=== PATIENT | female | born 1985 | race Caucasian/White ===

== ENCOUNTER → 2022-05-31 11:13 | Outpatient (CLI) | payer OTHER, SELFPAY ==
--- NOTE | ~2022-05-31 | MR_ITS ---
EXAMINATION: MR abdomen wo/w con INDICATION: Liver mass TECHNIQUE: Coronal SSFSE ARC, WATER:coronal LAVA-FLEX, Coronal 2D FIESTA FatSat, Axial SSFSE BH ARC, Axial 3D DualEcho BH, Axial SSFSE-IR, Axial DWI b=500, Axial 2D FIESTA FatSat, pre and dynamic postco ntrast Axial LAVA ARC, postcontrast Coronal In and Opposed phase LAVA FLEX COMPARISON: None CONTRAST: Multihance, 20 cc FINDINGS: There is a 14.8 x 11.3 cm mass of the right hepatic lobe, predominantly involving liver seg ments and VII, with signal characteristics consistent with a giant hemangioma. There is a 1.9 cm c yst in liver segment VII. Additional smaller hemangiomas are noted in liver segment VIII and segment . The spleen, gallbladder, and adrenal glands are normal. There are multiple tiny cystic lesions in the pancreas, and the nipple which definitely communicate with the main pancreatic duct. The largest measures 6 mm in the tail. The kidneys are unremarkable. There are no pathologically enlarged abdomi nal lymph nodes. There are no dilated loops of bowel. IMPRESSION: 1. 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 2. Cystic lesions of the pancreas measuring up to 5 mm in the tail. The differential diagnosis includ es pseudocyst, intraductal papillary mucinous neoplasm (IPMN), mucinous cystic neoplasm (MCN), and th e less common serous cystadenoma and neuroendocrine tumor. Correlate for history of pancreatitis. Fol low-up MRI without and with contrast or pancreas protocol CT in 12 months is recommended. Reviewed, dictated and finalized at location B. IMPRESSION: 1. 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 2. Cystic lesions of the pancreas measuring up to 5 mm in the tail. The differe ntial diagnosis includes pseudocyst, intraductal papillary mucinous neoplasm (I PMN), mucinous cystic neoplasm (MCN), and the less common serous cystadenoma an d neuroendocrine tumor. Correlate for history of pancreatitis. Follow-up MRI wi thout and with contrast or pancreas protocol CT in 12 months is recommended.
== END ==
PROVIDERS: PCP Family Medicine; Visit Provider Nurse Practitioner Family
DX: R16.0 Hepatomegaly, not elsewhere classified (principal); K76.9 Liver disease, unspecified; D18.09 Hemangioma of other sites; K86.9 Disease of pancreas, unspecified
CPT/HCPCS: 74183; A9577

== ENCOUNTER → 2023-04-02 08:02 | Outpatient (CLI) | payer OTHER, SELFPAY ==
--- NOTE | ~2023-04-02 | MR_ITS ---
EXAMINATION: MR abdomen wo/w con DATE: 04/02/2023 09:11 INDICATION: Hepatomegaly TECHNIQUE: Magnetic resonance imaging (MRI) of the abdomen was performed without and with 20 mL Multi melissa intravenous contrast. Sequences included coronal T2-weighted SS-FSE, coronal and axial FS 2D-F IESTA, axial STIR FSE, axial T2-weighted SS-FSE, axial T2-weighted FS SS-FSE, axial diffusion-weighte d SE, axial dual-echo T1-weighted FSPGR, and axial and coronal T1-weighted LAVA. Postcontrast axial T 1-weighted LAVA images were obtained in a time course. Postcontrast coronal T1-weighted LAVA images w ere obtained. COMPARISON: 05/31/2022 FINDINGS: Heart size is normal. No pericardial or pleural effusion. No significant change in a giant cavernous hemangioma in the right hepatic lobe which measures 14.4 x 10.1 x 11.0 cm. Unchanged T2 hyperintense cyst in segment 8 of the liver. Also unchanged are couple additional smaller hemangiomas measuring 1. 0 cm at the caudal tip of the right hepatic lobe 1.3 cm in the anterior dome of the liver demonstrati ng progressive delayed peripheral enhancement. 3.2 cm ovoid low signal intensity gallstone at the nec k of the otherwise normal-appearing gallbladder. No intra or extra hepatic biliary ductal dilation. S pleen, bilateral adrenal glands and kidneys are normal. Again seen are approximately 10 tiny T2 hype rintense lesions scattered throughout the pancreas the largest measuring 7 mm the uncinate process an d the remainder all measuring <5 mm suggesting multiple dilated side branches related to chronic panc reatitis. Visualized bowels are unremarkable. No pathologically enlarged abdominal lymphadenopathy. IMPRESSION: 1. No interval change in 14.4 cm cavernous hemangioma and a couple smaller approximately 1 cm hemangi omas in the right hepatic lobe. 2. No significant interval change in multiple subcentimeter T2 hyperintense cystic lesions scattered throughout the pancreas which suggests dilated pancreatic ductal side branches related to chronic blackmon creatitis. Correlate with clinical history. Recommend continued follow-up pre and postcontrast. 3. Cholelithiasis. Reviewed, dictated and finalized at location A. PULLER IMPRESSION: 1. No interval change in 14.4 cm cavernous hemangioma and a couple smaller appr oximately 1 cm hemangiomas in the right hepatic lobe. 2. No significant interval change in multiple subcentimeter T2 hyperintense cys tic lesions scattered throughout the pancreas which suggests dilated pancreatic ductal side branches related to chronic pancreatitis. Correlate with clinical history. Recommend continued follow-up pre and postcontrast. 3. Cholelithiasis.
== END ==
PROVIDERS: PCP Nurse Practitioner Family; Visit Provider Nurse Practitioner Family
DX: R16.0 Hepatomegaly, not elsewhere classified (principal); K76.9 Liver disease, unspecified; K80.20 Calculus of gallbladder without cholecystitis without obstruction
CPT/HCPCS: 74183; A9577

== ENCOUNTER 2023-05-07 14:36 | Outpatient (CLI) | payer OTHER, SELFPAY ==
[2023-05-07 15:24] LABS: Alanine Aminotransferase 15 U/L (6-35); Albumin Level 3.7 g/dL (3.5-5.1); Alkaline Phosphatase 91 U/L (38-126); Amylase 45 U/L (30-110); Aspartate Amino Transferase 19 U/L (14-36); Bilirubin,Total 0.4 mg/dL (0.2-1.3); Lipase 88 U/L (23-300)
== END 2023-05-07 14:37 | disposition home or self-care (01) ==
LOC: ANHLAB 14:38
PROVIDERS: PCP Nurse Practitioner Family; Visit Provider Surgery
DX: Z01.818 Encounter for other preprocedural examination (principal); K81.1 Chronic cholecystitis
CPT/HCPCS: 36415; 80076; 82150; 83690; 86850; 86900; 86901

== ENCOUNTER 2023-05-12 00:38 | Day surgery (SDC) | payer OTHER, SELFPAY ==
[2023-05-05 11:10] VITALS: BMI 37.5
--- NOTE | 2023-05-05 11:15 | PC.NURSE ---
Report to the Outpatient Waiting Room, entrance under the green pavilion located off [facility], at time 8:00 on date 05/12/23. Planned Procedure Time: 10:00. Time changes happen often and if your time is changed the preop area will call you the afternoon before. - You and your visitor will be asked to self-screen and do not enter if you have any COVID symptoms. - A mask is optional within the hospital at this time. Patients may have clear liquids (water, carbonated beverages, clear teas, apple juice) until 3 hours prior to surgery (7:00) with a maximum of 20 ounces. - No food from midnight until time of surgery Take the following medications with a SIP of water the morning of surgery: HYDROCORTISONE DO NOT STOP ANY OF YOUR OTHER PRESCRIPTION MEDICATIONS PRIOR TO SURGERY ?EXCEPT THE FOLLOWING Medications to discontinue per physician: VITAMINS/SUPPLEMENTS Date to take last dose: 05/08/23 Please no make-up, nail yoruba, hairspray, perfume, deodorant, or body powder the day of surgery. No jewelry (including any body piercings) or valuables the day of surgery, leave them at home. Please take a shower or bath the night before, or the morning of, surgery with an antibacterial soap. Wear comfortable, loose fitting clothing. - Jewelry must be removed prior to entering the operating room. Rings and piercings that are not removed may be cut off. - The hospital will not accept responsibility for valuables. - Please leave all valuables, including medications, at home the day of surgery. If you are going home after surgery, a licensed dedicated local truck driver must drive you home. - NO public transportation without another adult if you receive anesthesia. - We recommend that an adult stay with you for 24 hours following discharge. - We also recommend that you do not drive, make important decision, drink alcoholic beverages, or take any drugs that were not prescribed by your health care provider for at least 24 hours after your discharge time. Follow any additional instructions given to you from your surgeon. If you or anyone in your household have experienced Covid symptoms in the past week, please notify your surgeon or the nurse liaison at the phone number below for possible testing. Telephone instructions given to PT - BILLY EATON and asked if any additional questions and then verbalized understanding. Patient advised to call surgeon office or pre surgery nurse liaison [phone] if any additional questions.
[2023-05-12] VITALS (10 sets, daily range): BP systolic 112–134; BP diastolic 72–98; PULSE 70–92; RESP 14–20; TEMP 36.2–36.7; O2SAT 95–100
--- NOTE | 2023-05-12 07:24 | P.HP_ITS ---
H&P: HPI History of Present Illness Date/Time: 05/12/23 07:24 Chief Complaint: abdominal pain Narrative: Lillian is a 38 y/o female who presents to the office at the request of Ericka LAST for evaluation of nausea and vomiting. Patient states she has been experiencing these symptoms since January 2023. She denies any foods that trigger symptoms. She was seen at [facility] with complaints of chest pain and nausea in February. She is having normal BM's. She has [place]'s disease and was undergoing work up for this recently. Recent CT scan was done that showed gallstones. HIDA scan was also performed on 02/27/23, findings were consistent with chronic cholecystitis. 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 Spiritual care concerns: No Meds Home Medications and Allergies Home Medications Medication Instructions Recorded Confirmed Type hydrocortisone 10 mg tablet 10 mg PO HS 03/17/23 05/05/23 History levonorgestrel 21 mcg/24 hours (8 1 device intrauterine ONCE 03/17/23 05/05/23 H istory yrs) 52 mg intrauterine device (Mirena) multivitamin 1 tablet PO DAILY 03/17/23 05/05/23 History hydrocortisone 20 mg tablet 20 mg PO DAILY 03/19/23 05/05/23 History Ca 600 mg-D3 20 mcg-mag oxide 50 1 tablet PO DAILY 05/05/23 05/05/23 History do-Pm-pkypaw-manganese-boron tablet (Calcium 600-D3 Plus (mag-zinc)) Saccharomyces boulardii 250 mg 250 mg PO DAILY 05/05/23 05/05/23 History capsule (Daily Probiotic (S. boulardii)) omeprazole 40 mg capsule,delayed 40 mg PO DAILY 05/05/23 05/05/23 History release Allergies Allergy/AdvReac Type Severity Reaction Status Date / Time heparin Allergy Mild Rash Verified 05/05/23 11:07 codeine AdvReac Intermediate Unknown Verified 05/05/23 11:07 Exam Const: General: cooperative, comfortable, no acute distress and obese Resp: Auscultation: clear to auscultation bilaterally Cardio: Rate: regular rate Rhythm: regular rhythm GI: Inspection: normal to inspection and non-distended GI Palp: Yes abdominal tenderness, Yes Soft to palpation, Yes Tenderness to palpation present (GI), No Guarding due to palpation present (GI) and No Rigid due to palpation Assessment and Plan Assessment and plan (1) Chronic cholecystitis: Code(s): K81.1 - Chronic cholecystitis Status: Acute Assessment and Plan: setup for robotic assisted cholecystectomy in OR under general anesthesia
--- NOTE | 2023-05-12 07:30 | WPDHPUPDATE1 ---
History and Physical Update Update Date/Time: 05/12/23 07:30 History and Physical has been reviewed, including an updated exam of the patient. There are NO changes in the patient's condition. Risks, benefits, and alternatives have been discussed and questions answered. Patient agrees to proceed with procedure.
[2023-05-12] MEDS: ACETAMINOPHEN 500 MG TABLET 1000 MG PO (08:49)
[2023-05-12] MEDS: KETOROLAC 15 MG/ML VIAL (*BKC) IV PUSH (08:49)
[2023-05-12] MEDS: INDOCYANINE GREEN 25 MG VIAL WITH DILUENT 3.75 MG IV PUSH (08:52)
--- NOTE | 2023-05-12 08:54 | WPDANESEPPF ---
Anes - Initial Pre Proc Eval Procedure: Operation Date: 05/12/23 10:00 Proposed Procedures p Robotic Assisted Laparoscopic Cholecystectomy - Kalpana Manning MD Date/Time: 05/12/23 08:54 Surgeon: Kalpana Manning MD Pre Op Diagnosis: chronic cholecystitis,mireille's disease, hypertens Patient Data Age: 38 Gender: F Height: 1.7 m Weight: 108.9 kg Last Vital Signs Temp 97.1 F L 05/12/23 08:34 Pulse 74 05/12/23 08:34 Resp 16 05/12/23 08:34 BP 112/72 05/12/23 08:34 Pulse Ox 98 05/12/23 08:34 Allergies Allergy/AdvReac Type Severity Reaction Status Date / Time heparin Allergy Mild Rash Verified 05/05/23 11:07 codeine AdvReac Intermediate Unknown Verified 05/05/23 11:07 Home Medications Medication Instructions Recorded Confirmed Type hydrocortisone 10 mg tablet 10 mg PO HS 03/17/23 05/05/23 History levonorgestrel 21 mcg/24 hours (8 1 device intrauterine ONCE 03/17/23 05/05/23 History yrs) 52 mg intrauterine device (Mirena) multivitamin 1 tablet PO DAILY 03/17/23 05/05/23 History hydrocortisone 20 mg tablet 20 mg PO DAILY 03/19/23 05/05/23 History Ca 600 mg-D3 20 mcg-mag oxide 50 1 tablet PO DAILY 05/05/23 05/05/23 History ma-Dx-lalmgj-manganese-boron tablet (Calcium 600-D3 Plus (mag-zinc)) Saccharomyces boulardii 250 mg 250 mg PO DAILY 05/05/23 05/05/23 History capsule (Daily Probiotic (S. boulardii)) omeprazole 40 mg capsule,delayed 40 mg PO DAILY 05/05/23 05/05/23 History release Patient hx anesthesia problems: none Family hx anesthesia problems: none Results Review: All pre-operative results and documents have been reviewed as part of the pre-operative evaluation. 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 Informed Consent: The patient's anesthetic plan and its attendant risks and benefits were discussed with the patient/family/POA. Questions were solicited and answers provided to the satisfaction of the patient/family/POA.
[2023-05-12] MEDS: LACTATED RINGERS 1,000 ML 30 ML IV CONT ×2 (09:00→11:11)
[2023-05-12] MEDS: ceFAZolin 2 GM/D5W 50 ML 2 GM/50 ML BAG IVPB (09:18)
[2023-05-12] MEDS: BUPIVACAINE/EPINEPHRINE 0.5% 50 ML VIAL 30 ML INFILTRATE (09:38)
--- NOTE | 2023-05-12 11:41 | W.PM.PROC2 ---
Procedure Note - Detailed Date of Procedure 05/12/23 Pre-op Diagnosis cholecystitis, cholelithiasis Post-op Diagnosis Other ( acute hydrops cholecystitis, cholelithiasis) Procedure Performed Robotic assisted cholecystectomy Surgeon Kalpana Manning MD Anesthesia General Indications 38-year-old female presented to the office complaining of postprandial right upper quadrant abdominal pain associated with nausea and vomiting. Workup including imaging significant for cholecystitis, cholelithiasis. Findings acute hydrops cholecystitis, cholelithiasis Description of Procedure The patient was taken to the operating room and placed in the supine position. After adequate induction of general anesthesia, the patient was prepped and draped in the normal sterile fashion. A time-out was then done to verify the patient's identity, as well as the procedure being performed. I began by making a 8 mm incision in the periumbilical region. A Veress needle was then placed in the peritoneal cavity and CO2 gas was insufflated. After adequate pneumoperitoneum was achieved, the Veress needle was removed and a 8 mm Optiview trocar was placed under direct visualization. Once into the abdominal cavity, the introducer was removed and the laparoscope was placed through this trocar site. Under direct visualization, I placed a further 8 mm port in the left mid abdomen and 2x 8 mm ports in the right mid abdomen. The robot was then docked to these ports sites. I then went to the console. The gallbladder was then identified and noted to be severely inflamed and distended. There was noted to be a large amount omental adhesions to the gallbladder indicating acute cholecystitis. These adhesions were taken sharply with the Bovie cautery. Once achieved, I was able to place a grasper at the dome of the gallbladder and this was retracted up and over the liver. A 2nd retractor was used to grasp the infundibulum and retracted laterally. This allowed visualization and dissection of the triangle of Calot. There was noted to be a large impacted stone at the neck of the gallbladder making dissection more tedious and difficult. I then began dissection around the triangle Calot. I first identified the cystic duct, I was able to visualize the entirety of the duct from its proximal insertion into the gallbladder 2 at the distal junction with the common hepatic/common bile duct junction. I did use the firefly visualization at this point to confirm the anatomy. The proximal cystic duct was then further skeletonized, clipped, and transected. Next I visualized the cystic artery. Again the structure was skeletonized, clipped, and transected. I then again used firefly to confirm anatomy and no aberrant anatomy was noted. I then used the Bovie cautery to take down the peritoneal attachments of the gallbladder off the liver bed. This was quite difficult given the extensive amount of inflammation. Once the gallbladder specimen was completely detached, an Endo pouch was placed through the left-sided 8 mm port site and the gallbladder specimen was placed in the endo-pouch and subsequently removed. That we did have to enlarge the incision to allow extraction of gallbladder specimen. I then re-examined the right upper quadrant. There was some mild bleeding in the liver bed and this was controlled with the Bovie cautery. Once hemostasis was achieved, I placed hemostatic powder in the liver bed. Hemostasis was noted in the liver bed and the clips were noted to be in good position on both the duct and the artery. No other pathology was seen in the right upper quadrant. All instruments were then removed and the robot was undocked. I then closed the 12 incision at the fascial level using a Caio cone and 0 Vicryl suture under direct visualization. The abdomen was then desufflated and all ports were removed. All port sites were then closed with 4-0 Monocryl subcuticular suture. Dermabond was placed on each wa
[2023-05-12] MEDS: fentaNYL CITRATE INJ (*CRX) 100 MCG/2 ML VIAL 25 MCG IV PUSH ×4 (12:04→12:24)
[2023-05-12] MEDS: ONDANSETRON INJ 4 MG/2 ML VIAL IV PUSH (12:48)
== END 2023-05-12 13:45 | disposition home or self-care (01) ==
PROVIDERS: PCP Nurse Practitioner Family; Visit Provider Surgery
PROC: 0FT44ZZ Resection of Gallbladder, Percutaneous Endoscopic Approach (ICD-10-PCS; CPT 47562; principal; 2023-05-12 10:00)
DX: K80.10 Calculus of gallbladder with chronic cholecystitis without obstruction (principal); E11.9 Type 2 diabetes mellitus without complications; G47.30 Sleep apnea, unspecified; E24.9 Cushing's syndrome, unspecified; E66.9 Obesity, unspecified; Z68.38 Body mass index [BMI] 38.0-38.9, adult; Z86.018 Personal history of other benign neoplasm
CPT/HCPCS: 47562; S2900; 36415; 80076; 82150; 83690; 86850; 86900; 86901; 88304; A9270; J0690; J1720; J1885; J2250; J2405; J2704; J3010; J7120

== ENCOUNTER 2023-10-29 13:53 | Outpatient (CLI) | payer OTHER, SELFPAY ==
--- NOTE | ~2023-10-29 | MR_ITS ---
EXAMINATION: MR abdomen wo/w con DATE: 10/29/2023 15:06 INDICATION: Six-month follow-up pancreatic cyst. TECHNIQUE: Magnetic resonance imaging (MRI) of the abdomen was performed without and with 20 mL Multi melissa intravenous contrast. Sequences included coronal T2-weighted SS-FSE, coronal and axial FS 2D-F IESTA, axial STIR FSE, axial T2-weighted SS-FSE, axial T2-weighted FS SS-FSE, axial diffusion-weighte d SE, axial dual-echo T1-weighted FSPGR, and axial and coronal T1-weighted LAVA. Postcontrast axial T 1-weighted LAVA images were obtained in a time course. Postcontrast coronal T1-weighted LAVA images w ere obtained. COMPARISON: 04/02/2023 FINDINGS: Heart size is normal. No pericardial or pleural effusion. No significant interval change in 15.0 x 10 .1 x 10.5 cm cavernous hemangioma in the right hepatic lobe and a couple additional smaller 11 mm hem angiomas at the dome of the liver and more caudally in the right hepatic lobe, each with typical shyam pheral discontinuous puddling of contrast which progressively fills in on delayed imaging. Additional unchanged 11 mm hemangioma also with delayed peripheral puddling of contrast at the dome of the righ t hepatic lobe. 2.5 cm T2 hyperintense nonenhancing cyst in segment 8 of the liver. Interval cholecys tectomy. Spleen and bilateral adrenal glands are normal. There are couple tiny less than 4 mm T2 hype rintense nonenhancing cysts in both kidneys. No significant change in greater than 10 tiny T2 hyperin tense nonenhancing cystic lesions scattered throughout the pancreas, the largest measuring 8 mm in th e uncinate process and the remainder all measuring 6 mm or smaller. Visualized portions of the bowels are unremarkable with no obstruction. No pathologically enlarged abdominal lymphadenopathy. Bone mar row signal is normal throughout. IMPRESSION: 1. No significant interval change in multiple subcentimeter T2 hyperintense cystic lesions scattered throughout the pancreas. Recommend additional one-year follow-up. Postcontrast MRI. 2. Interval cholecystectomy. 3. 3 unchanged hemangiomas the right hepatic lobe, the largest a 15 cm cavernous hemangioma. Reviewed, dictated and finalized at location A. IMPRESSION: 1. No significant interval change in multiple subcentimeter T2 hyperintense cys tic lesions scattered throughout the pancreas. Recommend additional one-year fo llow-up. Postcontrast MRI. 2. Interval cholecystectomy. 3. 3 unchanged hemangiomas the right hepatic lobe, the largest a 15 cm cavernou s hemangioma.
== END 2023-10-29 13:54 ==
LOC: MICIMG 13:54
PROVIDERS: PCP Nurse Practitioner Family; Visit Provider Nurse Practitioner Family
DX: K86.2 Cyst of pancreas (principal); Z90.49 Acquired absence of other specified parts of digestive tract; D18.09 Hemangioma of other sites
CPT/HCPCS: 74183; A9577

== ENCOUNTER 2024-10-25 07:28 | Outpatient (CLI) | payer OTHER, SELFPAY ==
--- NOTE | ~2024-10-25 | MR_ITS ---
EXAMINATION: MR pituitary wo/w con DATE: 10/25/2024 08:18 INDICATION: Hyperprolactinemia TECHNIQUE: Magnetic resonance imaging (MRI) of the brain and brainstem was performed with 100 mL Omni paque-350 intravenous contrast. Whole-brain sequences included sagittal T1-weighted FSE, axial diffus ion-weighted FS EPI, axial 3D SWAN, axial T2-weighted FLAIR Propeller, and axial T2-weighted Propelle r. Small zrewi-[id number] sequences included sagittal and coronal T1-weighted FSE centered at the pituit everardo. Postcontrast sequences included small [id number]-[id number] coronal T1-weighted FSE in a time course an d sagittal T1-weighted FSE and whole-brain axial T1-weighted FSE. Apparent diffusion coefficient (ADC ) maps were created. COMPARISON: None. FINDINGS: There are no areas of restricted diffusion to suggest acute infarction. No intracranial hemorrhage or abnormal intracranial mass lesion. There are couple small foci of nonspecific increased T2-weighted signal intensity in the right frontal and parietal periventricular white matter which is within allan l limits for age. There are no intraparenchymal signal abnormalities seen on the other pulse sequence s. The ventricles are symmetric and normal in size. There are no abnormal extra-axial fluid collectio ns. The basal cisterns are patent. The pituitary is normal in size and symmetric with normal midline pituitary stalk. There is subtle heterogeneous enhancement throughout the pituitary on the time cours e of postcontrast imaging without a pituitary nodule. Mild mucosal thickening the bilateral ethmoid s inuses. Postoperative changes with resection of the bilateral middle turbinates and portions of the n sindy septum. Additional likely postoperative defect in the posterior wall of the sphenoid sinus which extends through the anterior wall of the sella. There is enhancing tissue filling the majority the o sseous defect. Flow voids are seen in the cerebral arteries on the T2-weighted sequences consistent w ith their expected patency. Left vertebral artery is dominant. Visualized orbits and soft tissues are unremarkable. IMPRESSION: 1. Changes of likely prior sinus surgery and with enhancing tissue within the osseous defect at the p osterior wall of the sphenoid sinus which extends through the anterior wall of the sella turcica and which suggests prior transsphenoidal pituitary surgery. There is subtle heterogeneous enhancement of the pituitary which appears otherwise normal in size and morphology with no discrete enhancing or hyp oenhancing nodule with normal midline pituitary stalk. Correlate with surgical history and with any p rior outside imaging if available. 2. Otherwise normal for age brain. Reviewed, dictated and finalized at location A. IMPRESSION: 1. Changes of likely prior sinus surgery and with enhancing tissue within the o sseous defect at the posterior wall of the sphenoid sinus which extends through the anterior wall of the sella turcica and which suggests prior transsphenoida l pituitary surgery. There is subtle heterogeneous enhancement of the pituitary which appears otherwise normal in size and morphology with no discrete enhanci ng or hypoenhancing nodule with normal midline pituitary stalk. Correlate with surgical history and with any prior outside imaging if available. 2. Otherwise normal for age brain.
--- OUTSIDE RECORDS SUMMARY | 2024-10-25 07:33 | XMS_ITS | Patient Health Record ---
Author Organization [facility] Address [address] [place] [address] Care Team Providers [facility] Director Name Role Phone Dr. Wendy Wheeler Primary Care Provider [phone] Wendy Perez Unavailable [phone] Migration, Provider Unavailable Unavailable Allergies Allergen (clinical drug ingredient) Drug/Non Drug Allergy documented on EMR Reaction Allergy Type Onset Date Status codeine Codeine low blood pressure Drug Allergy 06/27/2021 Active heparin Heparin rash not hives papular itchy rash while on Lovenox Drug Allergy 01/01/2023 Active Results Component Value Reference Range Flag Notes Vitamin B12 Reviewed date:05/26/2024 10:03:24 PM Interpretation: Performing Lab: Notes/Report: Test Performed by: [place] [id number] Mat Inspector: Davis Vallejo DO Vitamin B12 Lvl 518 180-914 pg/mL Vitamin B12 Interpretation: Normal Range: 180-914 pg/mL Indeterminate: 140-180 pg/mL Deficient: <140 pg/mL Lipid Panel {Chol, Trig, HDL , LDL} Reviewed date:05/26/2024 10:03:24 PM Interpretation: Performing Lab: Notes/Report: Test Performed by: [address] [id number] Mat Inspector: Davis Vallejo DO Cholesterol Total 139 <=199 mg/dL Triglycerides 76 0-149 mg/dL Triglyceride Reference Ranges: <150 mg/dL Normal 150 - 199 mg/dL Borderline High 200 - 499 mg/dL High >=500 mg/dL Very High LDL 81 <=100 mg/dL LDL Optimal: <100 Near or above optimal: 100-129 Borderline high: 130-159 High: 160-189 Very high: >=190 Coronary heart disease risk factors should be considered when determining LDL goals. Please refer to ATPIII guidelines for further information. If LDL is not calculated, please call the lab to add on the direct LDL methodology, if desired. HDL 42 23-92 mg/dL Non HDL Cholesterol 97 <=130 mg/dL Chol/HDL 3 0-5 Coronary Risk 31 Coronary Risk Factor - Male Dangerous Risk: <7 % High Risk: 7-15 % Average Risk: 15-25 % Below Average Risk: 25-37 % Coronary Risk Factor - Female Dangerous Risk: <12 % High Risk: 12-18 % Average Risk: 18-27 % Below Average Risk: 27-40 % Comprehensive Metabolic Pane l Reviewed date:05/26/2024 10:03:24 PM Interpretation: Performing Lab: Notes/Report: Test Performed by: [place] [address] Mat Inspector: Davis Vallejo DO Glucose Lvl 70 74-109 mg/dL L ADA risk stratification for diabetes <100 mg/dL = Normal 100-125 mg/dL = Increased risk for future diabetes >=126 mg/dL = Diabetes, if on more than one testing occasion BUN 10 7-25 mg/dL Creatinine Lvl 0.60 0.60-1.20 mg/dL eGFR CKD-EPI >90 >=90 mL/min/1.73 m2 The CKD-EPI equation is validated in individuals 18 years of age and older. It is less accurate in patients with extremes of muscle mass, restriction of dietary protein, ingestion of creatine, extra-renal metabolism of creatinine, or treatment with medications that affect renal tubular creatinine secretion. GFR Categories in Chronic Kidney Disease (CKD) GFR GFR (mL/min/1.73 Category: square meters): Interpretation: G1 90 or greater Normal or high* G2 60-89 Mild decrease* G3a 45-59 Mild to moderate decrease G3b 30-44 Moderate to severe decrease G4 15-29 Severe decrease G5 14 or less Kidney failure *In the absence of evidence of kidney damage, neither GFR category G1 nor G2 fulfill the criteria for CKD (Kidney Int Suppl 2013;3:1-150) Calcium Lvl 9.6 8.6-10.3 mg/dL Sodium Lvl 138 136-145 mmol/L Potassium Lvl 4.3 3.5-5.1 mmol/L Chloride Lvl 105 98-107 mmol/L CO2 27 21-31 mmol/L Anion Gap 6.4 <=16.0 mmol/L Alk Phos 101 34-104 unit/L Bilirubin Total 0.5 0.3-1.0 mg/dL Albumin Lvl 3.9 3.5-5.2 g/dL Protein Total 6.7 6.4-8.9 g/dL Albumin/Globulin Ratio 1.4 1.1-2.5 ALT 12 7-52 unit/L AST 13 13-39 unit/L CBC w Auto Diff Reviewed date:05/26/2024 10:03:24 PM Interpretation: Performing Lab: Notes/Report: Test Performed by: [address] [address] Mat Inspector: Davis Vallejo DO WBC 9.3 4.0-11.7 K/mcL RBC 5.05 3.80-5.41 x10*6/mcL Hgb 14.7 11.3-15.2 g/dL Hct 43.2 33.2-45.3 % MCV 85.6 79.5-98.1 fL MCH 29.1 27.0-34.2 pg MCHC 34.0 31.8-35.3 g/dL RDW 14.1 12.0-16.4 % Platelets 365 149-393 K/mcL MPV 8.8 7.0-11.0 fL Neutro Auto 76.8 45.3-79.0 % Lymph Auto 16.4 11.8-45.9 % [place] Auto 5.7 4.4-12.0 % Eosinophil Auto 0.6 0.0-6.3 % Basophil Auto 0.5 0.2-1.6 % Neutro Absolute 7.2 2.4-8.4 x10*3/mcL Lymph Absolute 1.5 0.8-3.7 x10*3/mcL [place] Absolute 0.5 0.3-1.1 x10*3/mcL Eos Absolute 0.1 0.0-0.5 x10*3/mcL Vitamin D 25 Hydroxy Reviewed date:05/26/2024 10:03:24 PM Interpretation: Performing Lab: Notes/Report: Test Performed by: Delfina [address] [address] Mat Inspector: Davis Vallejo DO Vitamin D 25 OH 30 30-100 ng/mL Vitamin D25 Interpretation: Deficient: <= 20 ng/mL Insufficient: 21-29 ng/mL Sufficient: 30-100 ng/mL Upper Safety Limit: >100 ng/mL Hemoglobin A1c {Glycosylated } Reviewed date:05/26/2024 10:03:24 PM Interpretation: Performing Lab: Notes/Report: Test Performed by: Delfina Romero [place] [id number] Mat Inspector: Davis Vallejo DO Hemoglobin A1c 5.1 <=6.4 % Hemoglobin A1C < 5.7% = Normal 5.7-6.4% = Increased risk for future diabetes >=6.5% = Diabetes eAvg Glucose 100 <=117 mg/dL eAG Reference Range <117 mg/dL = Normal 117-137 mg/dL = Increased Risk For Future Diabetes >137 mg/dL = Diabetes Reason For Referral No Information Medications Medication SIG (Take, Route, Frequency, Duration) Notes Start Date End Date Status One-A-Day Essential - Tablet Oral; Duration: 0 11/14/2020 Active Mirena 20 mcg/24 hours (6 yrs) 52 mg intrauterine; Duration: 0 *Reorder from [employer] | [employer]pay for eRx and Interaction Alerts* 11/14/2020 Active Lexapro 10 MG Tablet 1 tablet Orally Once a day Active Probiotic 250 MG Capsule as directed Orally Active Mounjaro 5 MG/0.5ML Solution Auto-injector 5mg Subcutaneous once a week; Duration: 0 days Prescribed by [facility] endo 11/19/2023 Active Hydrocortisone 10 MG Tablet 2 tablets in the AM and 1 tablet in the PM Orally twice a day Prescribed by [facility] End[facility] 05/25/2024 Active Calcium Magnesium Zinc 333-133-5 MG Tablet 1 tablet with meals Orally Three times a day Active Vitamin B12 100 MCG Tablet as directed Orally Active Vitamin D3 25 MCG (1000 UT) Tablet 1 tablet Orally Once a day Active Problems Problem Type SNOMED Code ICD Code Onset Dates Problem Status W/U Status Risk Notes Problem Essential hypertension (12607591) Essential (primary) hypertension (I10) 06/28/19 22 Active confirmed Problem 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) 02/15/20 23 Active confirmed Problem Benign essential hypertension (9356298) Essential hypertension, benign (401.1) 01/08/20 17 Active confirmed Problem Problem, abnormal examination (70988637) Encounter for general adult medical examination with abnormal findings (Z00.01) 06/28/19 22 Problem resolved confirmed Problem Thyroid function tests abnormal (473924696) Abnormal results of thyroid function studies (R94.6) 08/23/19 18 Problem resolved confirmed Problem Cough (72149326) Cough (R05) 05/29/19 18 Problem resolved confirmed Problem Vitiligo (05549121) Vitiligo (L80) 08/23/19 18 Problem resolved confirmed Problem Seborrheic dermatitis (37270061) Seborrheic dermatitis, unspecified (L21.9) 01/10/20 17 Problem resolved confirmed Problem Acute sinusitis (46299791) Acute sinusitis, unspecified (J01.90) 05/29/19 18 Problem resolved confirmed Problem Acute suppurative otitis media (disorder) (220039506) Acute suppurative otitis media without spontaneous rupture of ear drum, left ear (H66.002) 05/29/19 18 Problem resolved confirmed Problem Mixed hyperlipidemia (339942958) Mixed hyperlipidemia (E78.2) 01/10/20 17 Problem resolved confirmed Problem Vitamin D deficiency (59549985) Vitamin D deficiency, unspecified (E55.9) 01/10/20 17 Problem resolved confirmed Problem Thyrotoxicosis (09962498) Thyrotoxicosis, unspecified without thyrotoxic crisis or storm (E05.90) 08/23/19 18 Problem resolved confirmed Problem General examination of patient (501344428) Routine general medical examination at health care facility (V70.0) 01/10/20 17 Problem resolved confirmed Problem Thyroid function tests abnormal (049757421) Nonspecific abnormal results of thyroid function study (794.5) 08/23/19 18 Problem resolved confirmed Problem Vitiligo (54161489) Vitiligo (709.01) 08/23/19 18 Problem resolved confirmed Problem Acne scars - mixed atrophic and hypertrophic (756550220) Other specified hypertrophic and atrophic condition of skin (701.8) 01/10/20 17 Problem resolved confirmed Problem Acute sinusitis (33651650) Acute sinusitis, unspecified (461.9) 05/29/19 18 Problem resolved confirmed Problem Acute suppurative otitis media without spontaneous rupture of ear drum (disorder) (43411112) Acute suppurative otitis media without spontaneous rupture of eardrum (382.00) 05/29/19 18 Problem resolved confirmed Problem Hyperlipidemia (35488396) Other and unspecified hyperlipidemia (272.4) 01/10/20 17 Problem resolved confirmed Problem Vitamin D deficiency (89979416) Unspecified vitamin D deficiency (268.9) 01/10/20 17 Problem resolved confirmed Problem Adult health examination (788128187) Encounter for general adult medical examination without abnormal findings (Z00.00) 10/25/19 22 Inactive confirmed Problem Eruption of skin (612252088) Rash and other nonspecific skin eruption (R21) 06/28/19 22 Inactive confirmed Problem Diarrhea (73250883) Diarrhea, unspecified (R19.7) 06/09/19 22 Inactive confirmed Problem Arthralgia of the ankle and/or foot (585538608) Pain in right ankle and joints of right foot (M25.571) 11/15/19 21 Inactive confirmed Problem Generalized skin eruption caused by drug and medicament (disorder) (979083796) Generalized skin eruption due to drugs and medicaments taken internally (L27.0) 01/01/20 23 Inactive confirmed Problem Cough (finding) (63152992) Cough, unspecified (R05.9) 02/26/20 23 Active confirmed Problem Prediabetes (634392890) Prediabetes (R73.03) 10/26/19 22 Active confirmed Problem Long-term current use of 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 (426680118) 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) 01/01/20 23 Active confirmed Problem Blood chemistry abnormal (997231016) Other specified abnormal findings of blood chemistry (R79.89) 05/22/19 23 Active confirmed Problem Abnormality of albumin (R77.0) 02/26/20 23 Active confirmed Problem Edema (50284496) Edema, unspecified (R60.9) 07/26/19 22 Active confirmed Problem Fatigue (71828166) Other fatigue (R53.83) 07/07/19 24 Active confirmed Problem Hepatomegaly (65886462) Hepatomegaly, not elsewhere classified (R16.0) 04/24/19 Active confirmed Problem Vomiting (186071232) Vomiting, unspecified (R11.10) 02/15/20 Active confirmed Problem Nausea (793671560) Nausea (R11.0) 02/15/20 Active confirmed Problem Chest pain (00192450) Chest pain, unspecified (R07.9) 04/24/19 Active confirmed Problem Stress fracture of metatarsal bone (435613209) Stress fracture, unspecified foot, initial encounter for fracture (M84.376A) 11/15/19 Active confirmed Problem Pruritus (339434506) Pruritus, unspecified (L29.9) 01/02/20 Active confirmed Problem Contact dermatitis (59140371) Unspecified contact dermatitis, unspecified cause (L25.9) 12/25/19 Active confirmed Problem Cyst of pancreas (41897566) Cyst of pancreas (K86.2) 07/18/19 Active confirmed Problem Chronic cholecystitis (56316171) Chronic cholecystitis (K81.1) 03/06/20 Active confirmed Problem Cholelithiasis without obstruction (49120606) Calculus of gallbladder without cholecystitis without obstruction (K80.20) 02/19/20 Active confirmed Problem Liver disease (376089526) Liver disease, unspecified (K76.9) 04/24/19 Active confirmed Problem Disorder of vein (03903679) Other specified disorders of veins (I87.8) 07/26/19 Active confirmed Problem Aortic aneurysm (90219366) Aortic aneurysm of unspecified site, without rupture (I71.9) 02/25/20 Active confirmed seen on CTA done in ER 023. 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) 01/01/20 23 Active confirmed Problem Cough (43674627) Cough (786.2) 05/29/19 18 Active confirmed Problem External hemorrhoid (56882285) External hemorrhoid (K64.4) Active confirmed Problem Vitamin D deficiency (09858728) Vitamin D deficiency (E55.9) Active confirmed Vital Signs Heart Rate 68 /min 05/26/2024 Temperature 97.6 degrees Fahrenheit 05/26/2024 Height-cm 167.64 cm 05/26/2024 Oximetry 98 % 05/26/2024 Blood pressure diastolic 76 mm Hg 05/26/2024 Weight-kg 94.85 kg 05/26/2024 Height 66.00 in 05/26/2024 Blood pressure systolic 112 mm Hg 05/26/2024 Weight 209.1 lbs 05/26/2024 BMI 33.75 kg/m2 05/26/2024 Encounters Encounter Location Date Provider Diagnosis [address] [address] 05/26/2024 Wendy Perez Encounter for well adult exam without abnormal findings V70.0 ; Prediabetes R73.03 ; Essential (primary) hypertension I10 ; Restless legs syndrome G25.81 ; Insomnia, unspecified G47.00 ; Mauro's disease E27.1 and External hemorrhoid K64.[address] [address] 02/07/2024 Provider Migration [address] [address] 02/08/2024 Provider Migration [address] [address] 05/20/2024 Dr. Wendy Wheeler [address] [address] 05/26/2024 Wendy Perze Vitamin D deficiency E55.9 Assessments Encounter Date Diagnosis (ICD Code) Assessment Notes Treatment Notes Treatment Clinical Notes Section Notes 05/26/2024 Prediabetes (ICD-10 - R73.03) - Mildly elevated glucose in the past. - Continue Mounjaro injections, prescribed by Endo. - Check A1C and CMP today. 05/26/2024 Encounter for well adult exam without abnormal findings (ICD9-CM - V70.0) 05/26/2024 Vitamin D deficiency (ICD-10 - E55.9) 05/26/2024 Essential (primary) hypertension (ICD-10 - I10) - Chronic, well controlled with diet, lifestyle changes. - Recommend low sodium diet/heart healthy diet, daily intentional exercise or movement, weight management, and medication compliance for best control of blood pressure - Routine monitoring of labs. - Encouraged monitoring blood pressure at home daily - Goal BP to be less than 130/80 - Monitor for symptoms such as: chest pain, dyspnea, swelling in legs fatigue, dizziness upon standing, vision changes and/or headaches. 05/26/2024 Restless legs syndrome (ICD-10 - G25.81) - Continue Melatonin as needed. 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 - Continue daily oral steroid regimen. - Follows with Endocrinology at [facility]. 05/26/2024 External hemorrhoid (ICD-10 - K64.4) - Recommend Preparation H with hydrocortisone cream to apply BID for up to 2 weeks. - Increase fiber in diet, increase water intake to help stools pass easily without straining. - F/U as needed. Plan Of Treatment Future Test Test Name Order Date Vitamin D 25 Hydroxy 08/16/2024 Insurance Providers Payer Name Payer Address Payer Phone Subscriber Number Group Number Insured Name Patient Relationship to Insured Coverage Start Date Coverage End Date [facility] [address] [address] [place] [address] [id number] Lillian Gomez Self - patient is the insured 2 Medical (General) History Surgical History Surgery Date(Month/Year) Nose surgery ,notes : 08/2022 perinasal s urgery to determine cushings Endoscopic Endonasal transphenoidal rese ction ,notes : [facility] 12/19/22 [email or web address] ,notes : DR Kalpana Weems. 05/12/23"
--- OUTSIDE RECORDS SUMMARY | 2024-10-25 07:33 | XMS_ITS | Clinical Summary ---
Author Organization [address] Address [address] [place] [id number] Care Team Providers Care Bus Operator Name Role Phone Rosio Haider NP Primary Care Provider [phone]- [phone] Allergies Active Allergy Reactions Criticality Noted Date Comments Codeine Other (See comments),Syncope High 023 Enoxaparin Rash Medium 01/23/2023 Morphine Other (See comments) Low Loopy Medications levonorgestreL (MIRENA) IUD 1 each by intrauterine route once Placed in 2018 Active multivit-min/fe rrous fumarate (MULTI VITAMIN ORAL) Take 1 tablet by mouth mastic worker before breakfast Active cholecalciferol , vitamin D3, (VITAMIN D3 ORAL) Take 1 tablet by mouth mastic worker before breakfast Active escitalopram (LEXAPRO) 10 mg tablet 5 Active tirzepatide (Mounjaro) 5 mg/0.5 mL pen injector injectionIndica tions:type 2 diabetes mellitus Inject 0.5 mL (5 mg total) under the skin once a week 6 mL 3 5 07/06/19 26 Active hydrocortisone (CORTEF) 5 mg tabletIndicatio ns:Type 2 diabetes mellitus with hyperglycemia, without long-term current use of insulin (HCC) TAKE TAKE 4 TABLETS (20 MG) IN THE MORNING AND TAKE TWO (2) TABLETS (10 MG) IN THE AFTERNOON. 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 Will have done at [facility]. 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 Has been unable to wean down from hydrocortisone in past. Currently in process of divorce proceedings & wishes to not try taper now d/t increased stress. Currently taking 20mg every morning and 10mg in afternoon. Aware of sick day protocol with increasing hydrocortisone. Assessment & Plan (11/18/2023 4:28 PM CDT): Continue hydrocortisone 20 mg a.m. 10 mg p.m. 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 I advised Analia to lower her cortisone 50% every other week as tolerated She is also to keep a journal of her symptoms And she is managed to stop the cortisone after few weeks without any symptoms she is to call me so we can check her cortisol levels to assess for adrenal gland recovery Other specified disorders of nose and nasal sinu ses 03/12/2023 Primary hypertension 09/11/2022 Assessment & Plan (09/19/2022 1:40 PM CDT): Chronic problem. Controlled on current lisinopril-HCTZ 10-12.5mg daily. No changes Liver hemangioma 09/11/2022 Lower extremity pain, bilateral 09/11/2022 Pancreatic cyst 08/08/2022 Morbid (severe) obesity due to excess calories 0 06/20/2022 Assessment & Plan (06/20/2022 4:15 PM CDT): Diet and exercise Elaine will help with weight loss Body mass index 40.0-44.9, adult ([facility]) 06/20 Type 2 diabetes mellitus wit h hyperglycemia, without long-term current use of insulin 06/20/2022 Assessment & Plan (07/05/2024 1:36 PM CDT): Chronic problem. A1c at goal (4.9% today). Continues to lose weight on current dose of Mounjaro 5mg weekly. Continue current medications: Mounjaro 5mg weekly Will update labs today. Verified that she uses [facility]. Aware to check results/results letter in [employer]. Will contact by phone if needed. Had DM eye exam spring 2023 at [facility] in [place]. Letter sent to get copy of report. Discussed with Lillian Gomez: Discussed adding weight training & increasing protein intake. Strive for regular exercise (30min most days) and diet (get at least 4-5 servings of fruit and veggies daily, avoid processed foods, increase lean protein intake and decrease carb portions as well as fruit juices, regular soda & desserts). Watch carbs and simple sugars. Check the feet daily for skin breakdown and infection. Assessment & Plan (11/18/2023 4:27 PM CDT): Chronic, stay Advise on restarting GLP 1 with Mounjaro which will help with weight loss She agrees Patient to start 2.5 mg weekly for 4 to 8 weeks. 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 A1c at goal (5.2% today). Continue current medications: Metformin XR 500mg daily Mounjaro 5mg weekly Will update MA/Cr today. Verified that she uses [facility]. Aware to check results/results letter in [employer]. Will contact by phone if needed. Had DM eye exam spring 2022 at [facility] in [place]. Letter sent to get copy of report. 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 Will follow her for 4-6 weeks after surgery that is scheduled 12/19/[address] James at [facility]. 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 Diabetes [facility] Endocrinology [address] [place] [phone] Jo-Ann Montilla MD Medical Question/Miscellaneous 08/26/[address] [facility] Diabetes [facility] Endocrin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 Pituitary adenoma (HCC) 08/23/2022 Pituitary lesion 12/19/2022 Family History Medical History Relation Name Comments Diabetes Father Deep Hypertension Maternal Grandmother Nirali Memory loss Maternal Grandmother Nirali Obesity Maternal Grandmother Nirali Stroke Maternal Grandmother Nirali Hypertension Mother Relation Name Status Comments Father Deep Alive Maternal Grandmother Nirali Mother Alive Social History Tobacco Use Types Packs/Day Years Used Date Smoking Tobacco: Never Passive Smoke Exposure: Never Smokeless Tobacco: Never AUDIT-C Answer Date Recorded Q1: How often do you have a drink containing alcohol? Never 11/18/2023 Q2: How many drinks containi ng alcohol do you have on a typical day when you are drinking? Patient does not drink Q3: How often do you have si x or more drinks on one occasion? Never 11/18/2023 PHQ-2 Answer Date Recorded PHQ-2 Total Score (If total score is 3 or more points, staff should administer the PHQ-9) 0 11/18/2023 Personal Safety Answer Date Recorded Have you ever been in or are you currently in a harmful physical or emotional relationship or is someone making you feel afraid or unsafe? 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 on file Not on file Not on file Obstetrics History Comments LMP: 12/02/2022 Last Filed Vital Signs Vital Sign Reading Time Taken Comments Blood Pressure 104/74 07/05/2024 1:01 PM CDT Pulse 59 07/05/2024 1:01 PM CDT Temperature 36.5 C (97.7 F) 12/21/2022 11:45 AM CDT Respiratory Rate 18 07/05/2024 1:01 PM CDT Oxygen Saturation 95% 12/21/2022 11:45 AM CDT Inhaled Oxygen Concentration - - Weight 93 kg (205 lb) 07/05/2024 1:01 PM CDT Height 172.7 cm (5' 7.99) 07/05/2024 1:01 PM CD T Body Mass Index 31.18 07/05/2024 1:01 PM CDT Plan of Treatment Health Maintenance Due Date Last Done Comments Cervical Cancer Screening 1983 Hepatitis C Screening 1983 Varicella Vaccines (1 of 2 - 13+ 2-dose series) 01/13/1996 Hepatitis B Screening 2001 Regular Well Visit/Exam 18-64 2001 Pneumococcal vaccine <65 (1 of 2 - PCV) 2002 HPV Vaccines (1 - 3-dose SCD M series) 2010 Dilated Eye Exam 06/26/2023 06/25/2022 DTaP/Tdap/Td Vaccine (2 - Tdap) 07/15/2024 5 Influenza Vaccine (#1) 2024 Depression Screening 11/17/2024 11/18/2023, 01/23/2023, 06/20/2022 Hemoglobin A1C 01/04/2025 07/05/2024, 11/08, 06/05/2023, Additional history exists Breast Cancer Screening-Mammogram 02/17/2025 024, 02/18/2024 Albumin Creatinine Ratio, Urine 07/05/2025 5, 09/19/2022 Foot Exam 07/05/2025 07/05/2024 Lipid Panel 07/05/2025 07/05/2024, 0310/2023, 10/24/2021 eGFR 07/05/2025 07/05/2024, 12/08, 12/20/2022, Additional history exists Medical Devices Implanted Type Area Corporate Travel Counselor Device Identifier Shelf Expiration Date Model / Serial / Lot Integra Shiftboard [employer] Antonio Duragen Plus 2x2in Patch Resorbable Suturable Cranial Dura Graft [id number] - [id number] Implanted:Qty: 1 on 12/19/2022 by Sukumar James MD at [facility] N/A: Brain Integra [employer] Antonio 07/07/2025 [id number] / / Procedures Procedure Name Priority Date/Time Associated Diagnosis Comments EGFR Routine 07/05/2024 1:46 PM CDT Type 2 diabetes mellitus with hyperglycemia, without long-term current use of insulin (HCC) LIPID PANEL Routine 07/05/2024 1:46 PM CDT Type 2 diabetes mellitus with hyperglycemia, without long-term current use of insulin (HCC) ALBUMIN CREATININE RATIO, URINE Routine 07/05/2024 1:46 PM CDT Type 2 diabetes mellitus with hyperglycemia, without long-term current use of insulin (HCC) POCT HEMOGLOBIN A1C Routine 07/05/2024 1 :04 PM CDT Type 2 diabetes mellitus with hyperglycemia, without long-term current use of insulin (HCC) DIABETES EYE EXAM Routine 06/25/2022 7:27 AM CDT from Last 3 Months or Most Recently Relevant to Health Maintenance Results * eGFR (07/05/2024 1:46 PM CDT) eGFR >90 >=60 mL/min/1. 73 m2 Comment: Interpretive Data Reference Interval Normal >/= 90 mL/min/1.73m2 Mildly decreased* 60 - 89 mL/min/1.73m2 Mildly to moderately decreased 45 - 59 mL/min/1.73m2 Moderately to severely decreased 30 - 44 mL/min/1.73m2 Severely decreased 15 - 29 mL/min/1.73m2 Kidney Failure < 15 mL/min/1.73m2 *Relative to young adult level Estimated glomerular filtration rate is determined by the 2020 CKD-EPI equation recommended by the National Kidney Foundation (A Unifying Approach to GFR Estimation: Recommendations of the NKF-ASK Task Force on Reassessing the Inclusion of Race in Diagnosing Kidney Disease, JASN 2020). The CKD-EPI equation should not be used for patients with unstable renal function and has not been validated in children and those over 70. Current interpretive data was last reviewed 2021. Blood 07/05/2024 1:46 PM CDT 07/05/2024 8:05 PM CDT Annraphael Philip URGENT CARE TECHNICIAN LAB BLOOD ORDERABLES Adele l Result Performing Organization Address [facility] de Phone Number MELVINA [phone] [address] Department [employer] [place], [place] [id number] * Albumin Creatinine Ratio, Urine (07/05/2024 1:46 PM CDT) Albumin Ur 21.3 mg/L Comment: Interpretive Data No reference range established. Current interpretive data was last revised 2018. Creatinine Ur 290.1 mg/dL [facility] Comment: Interpretive Data No reference range established. Current interpretive data was last revised 2018. Albumin Creatinine Ratio, Ur 7 1 - 29 mg/g [facility] Urine 07/05/2024 1:46 PM CDT 07/05/2024 7:48 PM CDT Ann Philip URGENT CARE TECHNICIAN LAB URINE ORDERABLES Adele l Result Performing Organization Address [facility] Co de Phone Number [facility] [id number] [address] Department [place] [address] * Lipid panel (07/05/2024 1:46 PM CDT) Cholesterol 150 30 - 199 mg/dL Comment: Interpretive Data Ages < or = 19 years Acceptable: <170 mg/dL Borderline high: 170-199 mg/dL High: >or= 200 mg/dL Ages > or = 20 years Desirable: <200 mg/dL Borderline high: 200-239 mg/dL High: >or= 240 mg/dL Literature References: 1. Expert Panel on Integrated Guidelines for Cardiovascular Health and Risk Reduction in Children and Adolescents. Pediatrics 2011;128:S213 2. NCEP Expert Panel. Circulation 2004;110:227 Current Interpretive Data was last revised on 2017. Triglycerides 69 <=149 mg/dL MELVINA WHEELER Comment: Interpretive Data Ages < or = 9 years Acceptable: <75 mg/dL Borderline high: 75-99 mg/dL High: >or= 100 mg/dL Ages 10 to 20 years Acceptable: <90 mg/dL Borderline high: 90-129 mg/dL High: >or= 130 mg/dL Ages > or = 20 years Desirable: <150 mg/dL Borderline high: 150-199 mg/dL High: 200-499 mg/dL Very high: >or= 499 mg/dL Literature References: 1. Expert Panel on Integrated Guidelines for Cardiovascular Health and Risk Reduction in Children and Adolescents. Pediatrics 2011;128:S213 2. NCEP Expert Panel. Circulation 2004;110:227 Current Interpretive Data was last revised on 2017. HDL 41 >=40 mg/dL MELVINA WHEELER Comment: Interpretive Data Ages < or = 19 years Acceptable: >45 mg/dL Borderline low: 40-45 mg/dL Low: <40 mg/dL Ages > or = 20 years Desirable: >or= 60 mg/dL Low: <40 mg/dL Literature References: 1. Expert Panel on Integrated Guidelines for Cardiovascular Health and Risk Reduction in Children and Adolescents. Pediatrics 2011;128:S213 2. NCEP Expert Panel. Circulation 2004;110:227 Current Interpretive Data was last revised on 2017. LDL, calculated 95 <=129 mg/dL MELVINA WHEELER Comment: Interpretive Data Ages < or = 19 years Acceptable: <110 mg/dL Borderline high: 110-129 mg/dL High: >or= 130 mg/dL Ages > or = 20 years Optimal: <100 mg/dL Near optimal: 100-129 mg/dL Borderline high: 130-159 mg/dL High: >160 mg/dL Calculated using the Martinez LDL-C estimating equation. This equation was implemented on 2023. Prior to this date LDL-C was estimated using the Friedewald equation. Literature References: 1. Expert Panel on Integrated Guidelines for Cardiovascular Health and Risk Reduction in Children and Adolescents. Pediatrics 2011;128:S213 2. NCEP Expert Panel. Circulation 2004;110:227 3. Juan Cotton et al. DANIEL Cardiol. 2020 July 08;5(5):540-548. doi: [email or web address] Current Interpretive Data was last revised on 2023. Non-HDL Cholesterol 109 mg/dL MELVINA WHEELER Comment: Interpretive Data Ages < or = 19 years Acceptable: <120 mg/dL Borderline high: 120-144 mg/dL High: >145 mg/dL Ages > or = 20 years When triglycerides are >200 mg/dL, Non-HDL cholesterol is a secondary target of therapy with treatment goals that are 30 mg/dL greater than the LDL cholesterol target. Literature References: 1. Expert Panel on Integrated Guidelines for Cardiovascular Health and Risk Reduction in Children and Adolescents. Pediatrics 2011;128:S213 2. NCEP Expert Panel. Circulation 2004;110:227 Current Interpretive Data was last revised on 2017. Chol/HDL ratio 4 MELVINA WHEELER Blood 07/05/2024 1:46 PM CDT 07/05/2024 7:48 PM CDT Ann Philip NP LAB BLOOD ORDERABLES Adele l Result MELVINA [id number] [address] Department [place] [address] * POCT hemoglobin A1c (07/05/2024 1:04 PM CDT) Hemoglobin A1C, POC 4.9 4.0 - 5.6 % Blood 07/05/2024 1:04 PM CDT Ann Philip NP POINT OF CARE TEST ORDERA BLES Final Result * HM DIABETES EYE EXAM (06/25/2022 7:27 AM CDT) Historical Provider HEALTH MAINTENANCE Edited Result - Final from Last 3 Months or Most Recently Relevant to Health Maintenance Insurance [facility] H[facility]/PPO Address: [address] [facility] H[facility]/PPO Address: [place] [id number] [facility] H[facility]/PPO Address: [place] [id number] Advance Directives For more information, please contact: [phone] * Full Code (Latest Code Status on File) Date Activated Date Inactivated Comments 07/29/2022 12:25 PM 07/30/2022 5:35 AM Care Teams Bus Operator Relationship Specialty Start Date End Date Rosio Haider NP [address] [place] [address] PCP - General Nurse Practitioner 06/04/22
--- OUTSIDE RECORDS SUMMARY | 2024-10-25 07:34 | XMS_ITS | Clinical Summary ---
Author Organization [facility] Address [address] [place] [address] Care Team Providers Care Prosthetic Assistant Name Role Phone Wendy Wheeler MD Primary Care Provider Allergies Active Allergy Reactions Criticality Noted Date Comments Codeine Syncope 04/21/2022 Morphine Syncope 02/24/2023 Medications lisinopril-hydr oCHLOROthiazide (ZESTORETIC) 10-12.5 MG tablet Take 1 tablet by mouth daily. Active metFORMIN ER (GLUCOPHAGE-XR) 500 MG 24 hr tablet Take 500 mg by mouth daily. Has no started yet 04/17/2022 Active famotidine (PEPCID) 20 MG tablet Take 1 tablet (20 mg total) by mouth daily. 30 tablet 04/22/2022 Active dicyclomine (BENTYL) 20 MG tablet Take 1 tablet (20 mg total) by mouth every 6 (six) hours. 120 tablet 02/25/2023 Active Active Problems Problem Noted Date Diagnosed Date Chest pain 04/21/2022 Family History Medical History Relation Comments Breast Cancer Neg Hx Social History Tobacco Use Types Packs/Day Years Used Date Smoking Tobacco: Never Smokeless Tobacco: Never Tobacco Cessation:Counseling Given: Not Answered Humiliation, Afraid, Rape, and Kick questionnair e Answer Date Recorded Within the last year, have y ou been afraid of your partner or ex-partner? No 04/21/2022 Within the last year, have y ou been humiliated or emotionally abused in other ways by your partner or ex-partner? No 02 /02/2023 Within the last year, have y ou been kicked, hit, slapped, or otherwise physically hurt by your partner or ex-partner? No 04/21/2022 Within the last year, have y ou been raped or forced to have any kind of sexual activity by your partner or ex-partner? No 04/21/2022 Social Connection and Isolat ion Panel [NHANES] Answer Date Recorded In a typical week, how many times do you talk on the phone with family, friends, or neighbors? More than three times a week 04/21/2022 How often do you get togethe r with friends or relatives? Twice a week 04/21/2022 How often do you attend chur ch or christianity services? More than 4 times per year 04/21/2022 Do you belong to any clubs o r organizations such as sabianism groups, unions, fraternal or athletic groups, or school groups? Yes 04/21/2022 How often do you attend meet ings of the clubs or organizations you belong to? More than 4 times per year 04/21/2022 Are you , , di vorced, , never , or living with a partner? 04/21/2022 AUDIT-C Answer Date Recorded Q1: How often do you have a drink containing alc ohol? 2-4 times a month 04/21/2022 Q2: How many drinks containi ng alcohol do you have on a typical day when you are drinking? 1 or 2 04/21/2022 Q3: How often do you have si x or more drinks on one occasion? Never 04/21/2022 Overall Financial Resource Strain (CARDIA) Answe r Date Recorded How hard is it for you to pa y for the very basics like food, housing, medical care, and heating? Not hard at all 04/21/2022 [facility] - Occupational Stress Questionnaire Answer Date Recorded Do you feel stress - tense, restless, nervous, or anxious, or unable to sleep at night because your mind is troubled all the time - these days? To some extent 04/21/2022 Hunger Vital Sign Answer Date Recorded Within the past 12 months, y ou worried that your food would run out before you got the money to buy more. Never true 04/21/19 23 Within the past 12 months, t he food you bought just didn't last and you didn't have money to get more. Never true 04/21/2022 PRAPARE - Transportation Answer Date Re corded In the past 12 months, has l ack of transportation kept you from medical appointments or from getting medications? No 04/10 In the past 12 months, has l ack of transportation kept you from meetings, work, or from getting things needed for daily living? No 04/21/2022 Housing Stability Vital Sign Answer Goyo e Recorded In the last 12 months, was t here a time when you were not able to pay the mortgage or rent on time? No 04/21/2022 In the last 12 months, how many places have you lived? 1 04/21/2022 In the last 12 months, was t here a time when you did not have a steady place to sleep or slept in a jail (including now)? No 04/21/2022 Comments Unknown Sex and Gender Information Value Date Recorded Sex Assigned at Not on file Legal Sex Female 5:34 PM CDT Gender Identity Not on file Sexual Orientation Not on file Last Filed Vital Signs Vital Sign Reading Time Taken Comments Blood Pressure 123/73 02/24/2023 11:45 PM EXECUTIVE [employer]LLNESS PROGRAMS DIRECTOR Pulse 69 02/24/2023 11:45 PM EXEC[employer]IVE [employer]NESS PROGRAMS DIRECTOR Temperature 35.8 C (96.4 F) 02/24/2023 10:02 PM EXECUTIVE WELLNESS PROGRAMS DIRECTOR Respiratory Rate 20 02/24/2023 11:45 PM EXECUTIVE WELLNESS PROGRAMS DIRECTOR Oxygen Saturation 100% 02/24/2023 11:45 PM EXECUTIVE WELLNESS PROGRAMS DIRECTOR Inhaled Oxygen Concentration - - Weight 108.9 kg (240 lb) 02/24/2023 10:02 PM EXECUTIVE WELLNESS PROGRAMS DIRECTOR Height 172.7 cm (5' 8) 02/24/2023 10:02 PM EXECUTIVE WELLNESS PROGRAMS DIRECTOR Body Mass Index 36.49 02/24/2023 10:02 PM EXECUTIVE WELLNESS PROGRAMS DIRECTOR Plan of Treatment Health Maintenance Due Date Last Done Comments Annual Physical 1986 Hepatitis C 2001 Hepatitis B Vaccines (1 of 3 - 19+ 3-dose series) 2002 HPV Vaccines (1 - 3-dose SCD M series) 2010 Cervical Cancer Screening Pa p with HPV Testing (Age 30 to 64) Every 5 Years 2013 Cervical Cancer Screening Pa p Smear (Age 30 to 64) Every 3 Years 04/08/2016 04/08/2013 Cervical Cancer Screening with HPV 04/08/2016 COVID-19 Vaccine (2023-2 5 season) 2023 DTaP, Tdap and Td Vaccines ( 2 - Tdap) 07/15/2024 07/15/2014 Mammogram Screening 02/17/2026 02/18/2024 Meningococcal B Vaccine Aged Out No l onger eligible based on patient's age to complete this topic Meningococcal Vaccine Aged Out No tio rhiannon eligible based on patient's age to complete this topic Pneumococcal Vaccine: Pediat rics (0 to 5 Years) and At-Risk Patients (6 to 49 Years) Aged Out No longer eligi ble based on patient's age to complete this topic RSV Immunizations Under 20 Months Aged Out No longer eligible based on patient's age to complete this topic Procedures Procedure Name Priority Date/Time Associated Diagnosis Comments MG SCREENING W CAROLYNN FINESSE DIGI Routine 02/18/2024 8:35 AM EXECUTIVE WELLNESS PROGRAMS DIRECTOR Screening mammogram for breast cancer THINPREP IMAGING PAP REFLEX HPV MRNA E6/E7 Routine 04/08/2013 11:00 AM EXECUTIVE WELLNESS PROGRAMS DIRECTOR from Last 3 Months or Most Recently Relevant to Health Maintenance Results * MG SCREENING W CAROLYNN FINESSE DIGI (02/18/2024 8:35 AM EXECUTIVE WELLNESS PROGRAMS DIRECTOR) Anatomical Region Laterality Modality Breast Bilateral Mammography 02/18/2024 1:58 PM EXECUTIVE WELLNESS PROGRAMS DIRECTOR Impressions 02/18/2024 1:59 PM EXECUTIVE WELLNESS PROGRAMS DIRECTOR =====IMPRESSION:===== No mammographic findings suggestive of malignancy ASSESSMENT: ACR BI-RADS 2 - BENIGN FINDING(S) Recommendation: 1: Routine Screening Bilateral COMMENTS: Ordered By: MEGAN RUIZ Interpreted By: Carlos Claire MD, 02/18/2024 1:58 PM Narrative 02/18/2024 1:59 PM EXECUTIVE WELLNESS PROGRAMS DIRECTOR [facility] [address] [place] [address] EXAMINATION: Digital bilateral screening mammogram with 3-D tomosynthesis EXAM DATE/TIME: 02/18/2024 8:01 AM REASON FOR EXAM: Screening COMPARISON: Baseline study. TECHNIQUE: Digital screening mammography of both breasts was performed in addition to 3-D Tomosynthesis technique. This study was read with the assistance of a computer-aided detection system. TISSUE DENSITY: There are scattered areas of fibroglandular density. FINDINGS: No suspicious masses, malignant appearing calcifications, skin thickening or other abnormalities are present. us Megan Ruiz MD MAMMO Final Resul t * THINPREP IMAGING PAP REFLEX HPV MRNA E6/E7 (04/08/2013 11:00 AM EXECUTIVE WELLNESS PROGRAMS DIRECTOR) REFLEX ADDED no [facility] P TO EPIC CONVERSION 04/08/2013 11:0 0 AM EXECUTIVE WELLNESS PROGRAMS DIRECTOR 04/08/2013 11:00 AM EXECUTIVE WELLNESS PROGRAMS DIRECTOR Narrative [facility] TO EPIC CONVERSION - 04/17/2013 7:46 AM EXECUTIVE WELLNESS PROGRAMS DIRECTOR This lab was migrated from [facility] and may be missing annotations or result text, please check the Media tab for the most complete results. Aminta Rollins LABORER [employer] PATHOLOGY/CYTOLOGY ORDERABL ES Final Result [facility] TO EPIC CONVERSION from Last 3 Months or Most Recently Relevant to Health Maintenance Insurance [facility] Advance Directives Documents on File Type Date Recorded Patient Immigration Manager Expl anation Advance Directives and Living Will 04/25/2017 12:00 AM ADVANCED DIRECTIVES * Full Code (Latest Code Status on File) Date Activated Date Inactivated Comments 04/21/2022 9:37 PM 04/22/2022 1:25 PM Care Teams Prosthetic Assistant Relationship Specialty Start Date End Date Wendy Wheeler MD [address] [place] [address] PCP - General FAMILY PRACTICE 11/20/21
--- OUTSIDE RECORDS SUMMARY | 2024-10-25 07:34 | XMS_ITS ---
Author Organization [facility] Address [address] [place] [id number] Care Team Providers Care Carroter Name Role Phone Dr. Wendy Wheeler Primary Care Provider [phone] Migration, Provider Unavailable Unavailable Allergies Allergen (clinical drug ingredient) Drug/Non Drug Allergy documented on EMR Reaction Allergy Type Onset Date Status codeine Codeine low blood pressure Drug Allergy 06/27/2021 Active heparin Heparin rash not hives papular itchy rash while on Lovenox Drug Allergy 01/01/2023 Active REASON FOR VISIT EMR-Fredy Medications Medication SIG (Take, Route, Frequency, Duration) Notes Start Date End Date Status Mounjaro 2.5 MG/0.5ML Solution Pen-injector 2.5 Subcutaneous once a week; Duration: 0 11/19/2023 Active One-A-Day Essential - Tablet Oral; Duration: 0 11/14/2020 Active Mirena 20 mcg/24 hours (6 yrs) 52 mg intrauterine; Duration: 0 *Reorder from [facility] for eRx and Interaction Alerts* 11/14/2020 Active Encounters Encounter Location Date Provider Diagnosis [facility] [address] [place] [address] 02/08/2024 Provider Migration Plan Of Treatment No Information Progress Notes * Pawel EATONOB:[birth year] (39 yo F)Acc No.[id number]:02/08/2024 Patient: Anders MAYORGAe :1985 A ge:39 Y S ex:Female Phone: Address:[address] [place], [address] Subjective: * Chief Complaints: * E MR-Fredy * Stock Lifter History: M igrated GYNHistory M enstrual History:: control method (BCM): IUD placed 2018 .? * Surgical History: Nose surgery ,notes : 08/2022 perinasal surgery to determine cushings Endoscopic Endonasal transphenoidal resection ,notes : [facility] 12/19/22 cholecystecomy ,notes : DR Kalpana Weems. 05/12/23 * Medications: T akingMounjaro 2.5 MG/0.5ML Solution Pen-injector 2.5 Subcutaneous once a week Mirena 20 mcg/24 hours (6 yrs) 52 mg intrauterine , Notes to Pharmacist: *[facility]*One-A-Day Essential - Tablet Oral Taking Mounjaro 2.5 MG/0.5ML Solution Pen-injector 2.5 Subcutaneous once a week Taking Mirena 20 mcg/24 hours (6 yrs) 52 mg intrauterine , Notes to Pharmacist: *[facility]*Taking One-A-Day Essential - Tablet Oral * Allergies: H eparin: rash not hives papular itchy rash while on Lovenox - Allergy - Onset Date 01/01/2023odeine: low blood pressure - Allergy - Onset Date 06/27/2021 * * Date:
== END 2024-10-25 07:29 | disposition home or self-care (01) ==
PROVIDERS: PCP Nurse Practitioner Family; Visit Provider Nurse Practitioner Family
DX: R93.0 Abnormal findings on diagnostic imaging of skull and head, not elsewhere classified (principal); E23.7 Disorder of pituitary gland, unspecified; E22.1 Hyperprolactinemia; Z86.39 Personal history of other endocrine, nutritional and metabolic disease
CPT/HCPCS: 70553; A9577